=== PATIENT | female | born 1965 ===

== ENCOUNTER 2024-04-10 11:31 | Inpatient (IN) ==
[2024-04-10] MEDS ORDERED: IOPAMIDOL 100 ML BOTTLE IV ONE (11:32)
[2024-04-10] MEDS: 0.9 % SODIUM CHLORIDE 1,000 ML IV ONE (12:15)
[2024-04-10] MEDS: HYDROmorphone 0.5 MG/0.5 ML SYRINGE IV ONE ×3 (12:20→14:07)
[2024-04-10] MEDS: ONDANSETRON 4 MG/2 ML VIAL IV ONE ×2 (12:21→15:00)
[2024-04-10 12:43] LABS: Basophils # (Auto) 0.01 K/mcL (0.00-0.30); Basophils % (Auto) 0.1 % (0.0-2.0); Eosinophils # (Auto) 0.16 K/mcL (0.00-0.70); Eosinophils % (Auto) 1.2 % (0.0-7.0); Hematocrit 48.4 % (34.1-44.9); Lymphocytes # (Auto) 1.46 K/mcL (1.50-4.80); Lymphocytes % (Auto) 11.2 % (15.5-49.0); Mean Cell Volume 85.1 fL (80.0-100.0); Mean Corpuscular HGB Conc 33.1 g/dL (31.0-36.0); Mean Platelet Volume 10.1 fL (8.8-12.5); Monocytes % (Auto) 6.9 % (1.0-12.0); Neutrophils % (Auto) 80.4 % (38.0-78.0); Platelet Count 279 K/mcL (140-440); RBC 5.69 M/mcL (3.59-5.38); Red Cell Distribution Width 12.3 % (11.5-14.5)
[2024-04-10 13:05] LABS: ALT/SGPT 20 U/L (<40); AST/SGOT 32 U/L (<32); Albumin 4.5 gm/dL (3.2-5.2); Albumin/Globulin Ratio 1.7 (1.0-2.3); Alkaline Phosphatase 113 U/L (39-117); Bilirubin,Total 0.5 mg/dL (0.1-1.0); Blood Urea Nitrogen 14 mg/dL (6-20); Calcium 9.6 mg/dL (8.6-10.4); Carbon Dioxide 20 mmol/L (22-30); Chloride 104 mmol/L (96-108); Globulin 2.6 gm/dL (2.2-3.7); Glomerular Filtration Rate 100; Glucose 139 mg/dL (70-105); Potassium 3.9 mmol/L (3.3-5.1); Sodium 138 mmol/L (133-145)
[2024-04-10 13:19] LABS: Appearance,Urine Clear (Clear); Bacteria,Urine Few /hpf (0); Bilirubin,Urine Negative (Negative); Color,Urine Yellow; Culture Indicated,Urine No; Glucose,Urine (UA) Negative (Negative); Ketones,Urine Negative (Negative); Leukocyte Esterase,Urine Small /uL (Negative); Nitrate,Urine Negative (Negative); PH,Urine 5.5 (5.0-9.0); Protein,Urine 30 mg/dL (Negative); Urine Blood Trace-intact ery/mcL (Negative); Urine RBC 6 /hpf (0-3); Urine Squamous Epithelial Cell 5 /hpf (0-4); Urine WBC 5 /hpf (0-4); Urobilinogen,Urine 0.2 mg/dL
[2024-04-10] MEDS ORDERED: NALOXONE HCL 0.4 MG/ML VIAL IV PRN (15:30)
[2024-04-10] MEDS: LACTATED RINGERS 1,000 ML IV SCH (15:53)
[2024-04-10] MEDS: HYDROmorphone 1 MG/ML SYRINGE IV PRN ×2 (16:03→22:08)
[2024-04-10] MEDS ORDERED: IPRATROPIUM/ALBUTEROL 3 ML AMPUL.NEB NEB PRN (17:17)
[2024-04-10] MEDS: ACETAMINOPHEN 650 MG/65 ML BAG IV ONE (18:03)
[2024-04-10] MEDS: HYDROmorphone 1 MG/ML SYRINGE IV ONE (18:04)
[2024-04-10] MEDS: ONDANSETRON 4 MG/2 ML VIAL IV PRN (18:05)
[2024-04-10] MEDS: ACETAMINOPHEN 1,000 MG/100 ML BAG IV ONE (18:14)
[2024-04-10] MEDS: ONDANSETRON 4 MG/2 ML VIAL ONE (18:16)
[2024-04-10 18:34] LABS: HDL Cholesterol 51 mg/dL (>40); LDL Cholesterol,Calculated 143 mg/dL (<100); Non-HDL Cholesterol 168 mg/dL (<130); Triglycerides 127 mg/dL (<150)
[2024-04-10] MEDS: 0.9 % SODIUM CHLORIDE 10 ML SYRINGE IV SCH (23:20)
[2024-04-11] MEDS: ACETAMINOPHEN 650 MG/65 ML BAG IV PRN
[2024-04-11 05:50] LABS: ALT/SGPT 14 U/L (<40); AST/SGOT 27 U/L (<32); Albumin 4.1 gm/dL (3.2-5.2); Albumin/Globulin Ratio 1.6 (1.0-2.3); Alkaline Phosphatase 113 U/L (39-117); Bilirubin,Direct < 0.2 mg/dL (0-0.3); Bilirubin,Total 0.4 mg/dL (0.1-1.0); Blood Urea Nitrogen 16 mg/dL (6-20); Calcium 8.8 mg/dL (8.6-10.4); Carbon Dioxide 23 mmol/L (22-30); Chloride 103 mmol/L (96-108); Globulin 2.5 gm/dL (2.2-3.7); Glomerular Filtration Rate 81; Glucose 213 mg/dL (70-105); Lactate Dehydrogenase 197 U/L (135-225); Phosphorous 3.5 mg/dL (2.5-4.5); Potassium 4.3 mmol/L (3.3-5.1); Sodium 140 mmol/L (133-145); Triglycerides 83 mg/dL (<150); Uric Acid 3.9 mg/dL (2.5-8.0)
[2024-04-11 06:29] LABS: Basophils # (Auto) 0.01 K/mcL (0.00-0.30); Basophils % (Auto) 0.1 % (0.0-2.0); Eosinophils # (Auto) 0 K/mcL (0.00-0.70); Eosinophils % (Auto) 0 % (0.0-7.0); Hematocrit 52.2 % (34.1-44.9); Hemoglobin 17.1 g/dL (11.2-15.7); Lymphocytes # (Auto) 0.67 K/mcL (1.50-4.80); Lymphocytes % (Auto) 3.8 % (15.5-49.0); Mean Corpuscular HGB Conc 32.8 g/dL (31.0-36.0); Mean Platelet Volume 9.8 fL (8.8-12.5); Monocytes # (Auto) 0.93 K/mcL (0.10-0.90); Monocytes % (Auto) 5.2 % (1.0-12.0); Neutrophils % (Auto) 90.6 % (38.0-78.0); Platelet Count 297 K/mcL (140-440); Red Cell Distribution Width 12.3 % (11.5-14.5); WBC 17.8 K/mcL (4.5-11.0)
[2024-04-11 07:20] LABS: Appearance,Urine CLEAR (Clear); Bilirubin,Urine Negative (Negative); Color,Urine YELLOW; Culture Indicated,Urine No; Glucose,Urine (UA) 150 mg/dL (Negative); Ketones,Urine Negative (Negative); Leukocyte Esterase,Urine Negative /uL (Negative); Mucus,Urine MANY /hpf; Nitrate,Urine Negative (Negative); Protein,Urine 30 mg/dL (Negative); Specific Gravity,Urine 1.049 (1.000-1.035); Urine Blood 0.03 mg/dL (Negative); Urine Hyaline Cast 1 /lph (0-2); Urine RBC 1 /hpf (0-3); Urine Squamous Epithelial Cell 1 /hpf (0-4); Urine WBC 0 /hpf (0-4); Urobilinogen,Urine Negative
[2024-04-11] MEDS: LACTATED RINGERS 1,000 ML IV SCH (07:30)
[2024-04-11] MEDS: PIPERACILLIN SODIUM/TAZOBACTAM 4.5 GM in DEXTROSE 5% IN WATER 50 ML IV ONE (08:44)
[2024-04-11] MEDS: ENOXAPARIN 40 MG/0.4 ML SYRINGE SQ SCH (08:45)
[2024-04-11] MEDS: MONTELUKAST 10 MG TABLET PO SCH (08:46)
[2024-04-11] MEDS: PROCHLORPERAZINE 10 MG/2 ML VIAL IV ONE (08:59)
[2024-04-11] MEDS: PIPERACILLIN SODIUM/TAZOBACTAM 4.5 GM in DEXTROSE 5% IN WATER 100 ML IV SCH (11:18)
[2024-04-11] MEDS: Fluticasone-Umeclidin-Vilanter [Trelegy Ellipta] Inhaler INH SCH (13:00)
[2024-04-11] MEDS ORDERED: IOPAMIDOL 100 ML BOTTLE IV ONE (17:21)
[2024-04-11] MEDS: METOPROLOL TARTRATE 5 MG/5 ML VIAL IV ONE ×2 (18:04→18:19)
[2024-04-12] MEDS: METOPROLOL TARTRATE 5 MG/5 ML VIAL IV PRN (05:04)
[2024-04-12] MEDS: METOPROLOL TARTRATE 5 MG/5 ML VIAL IV ONE (05:42)
[2024-04-12 07:11] LABS: Basophils # (Auto) 0.01 K/mcL (0.00-0.30); Basophils % (Auto) 0.1 % (0.0-2.0); Eosinophils # (Auto) 0 K/mcL (0.00-0.70); Eosinophils % (Auto) 0 % (0.0-7.0); Hematocrit 45.2 % (34.1-44.9); Hemoglobin 14.8 g/dL (11.2-15.7); Lymphocytes % (Auto) 3.6 % (15.5-49.0); Mean Cell Volume 87.8 fL (80.0-100.0); Mean Corpuscular HGB Conc 32.7 g/dL (31.0-36.0); Mean Platelet Volume 10.1 fL (8.8-12.5); Monocytes # (Auto) 1.24 K/mcL (0.10-0.90); Monocytes % (Auto) 6.4 % (1.0-12.0); Neutrophils % (Auto) 89.6 % (38.0-78.0); Platelet Count 222 K/mcL (140-440); RBC 5.15 M/mcL (3.59-5.38); Red Cell Distribution Width 12.9 % (11.5-14.5); WBC 19.4 K/mcL (4.5-11.0)
[2024-04-12 07:44] LABS: ALT/SGPT 18 U/L (<40); AST/SGOT 44 U/L (<32); Albumin 3.3 gm/dL (3.2-5.2); Albumin/Globulin Ratio 1.6 (1.0-2.3); Alkaline Phosphatase 80 U/L (39-117); Bilirubin,Direct 0.4 mg/dL (<0.3); Bilirubin,Total 0.8 mg/dL (0.1-1.0); Blood Urea Nitrogen 15 mg/dL (6-20); Calcium 7.9 mg/dL (8.6-10.4); Carbon Dioxide 24 mmol/L (22-30); Chloride 103 mmol/L (96-108); Globulin 2.1 gm/dL (2.2-3.7); Glomerular Filtration Rate 100; Glucose 176 mg/dL (70-105); Lactate Dehydrogenase 373 U/L (135-225); Phosphorous 1.7 mg/dL (2.5-4.5); Potassium 4.2 mmol/L (3.3-5.1); Sodium 137 mmol/L (133-145); Triglycerides 56 mg/dL (<150); Uric Acid 2.1 mg/dL (2.5-8.0)
[2024-04-12] MEDS: LIDOCAINE 4% TOP PATCH TOPICAL SCH (08:30)
[2024-04-12] MEDS: LACTATED RINGERS 1,000 ML IV SCH (10:26)
[2024-04-12] MEDS ORDERED: IOPAMIDOL 100 ML BOTTLE IV ONE (11:44)
[2024-04-12] MEDS: MEROPENEM 1 GM in 0.9 % SODIUM CHLORIDE 50 ML IV SCH (15:14)
[2024-04-12] MEDS: METOPROLOL TARTRATE 50 MG TABLET PO SCH (18:10)
[2024-04-12] MEDS: METOPROLOL TARTRATE 25 MG TABLET ONE (18:34)
[2024-04-12] MEDS: CALCIUM CARBONATE 500 MG TAB.CHEW PO SCH (21:06)
[2024-04-13 06:40] LABS: Basophils # (Auto) 0 K/mcL (0.00-0.30); Basophils % (Auto) 0 % (0.0-2.0); Eosinophils # (Auto) 0 K/mcL (0.00-0.70); Eosinophils % (Auto) 0 % (0.0-7.0); Hematocrit 40.1 % (34.1-44.9); Lymphocytes % (Auto) 4.5 % (15.5-49.0); Mean Cell Volume 87.7 fL (80.0-100.0); Mean Corpuscular HGB Conc 32.4 g/dL (31.0-36.0); Mean Platelet Volume 9.7 fL (8.8-12.5); Monocytes # (Auto) 0.75 K/mcL (0.10-0.90); Monocytes % (Auto) 5.7 % (1.0-12.0); Neutrophils % (Auto) 88.7 % (38.0-78.0); Platelet Count 199 K/mcL (140-440); RBC 4.57 M/mcL (3.59-5.38); WBC 13.2 K/mcL (4.5-11.0)
[2024-04-13 07:16] LABS: ALT/SGPT 17 U/L (<40); AST/SGOT 46 U/L (<32); Albumin 2.8 gm/dL (3.2-5.2); Albumin/Globulin Ratio 1.1 (1.0-2.3); Alkaline Phosphatase 70 U/L (39-117); Bilirubin,Direct 0.4 mg/dL (<0.3); Bilirubin,Total 0.9 mg/dL (0.1-1.0); Blood Urea Nitrogen 12 mg/dL (6-20); Calcium 8.3 mg/dL (8.6-10.4); Carbon Dioxide 25 mmol/L (22-30); Chloride 102 mmol/L (96-108); Globulin 2.6 gm/dL (2.2-3.7); Glomerular Filtration Rate 106; Glucose 140 mg/dL (70-105); Lactate Dehydrogenase 540 U/L (135-225); Phosphorous 1.2 mg/dL (2.5-4.5); Sodium 136 mmol/L (133-145); Triglycerides 74 mg/dL (<150); Uric Acid 2.2 mg/dL (2.5-8.0)
[2024-04-13] MEDS: oxyCODONE IR 5 MG TABLET PO PRN (10:41)
[2024-04-13] MEDS: SODIUM PHOSPHATE 30 MMOL in DEXTROSE 5% IN WATER 500 ML IV ONE (12:11)
[2024-04-13] MEDS: ACETAMINOPHEN 325 MG TABLET PO PRN (20:56)
[2024-04-14 06:53] LABS: ALT/SGPT 15 U/L (<40); AST/SGOT 37 U/L (<32); Albumin 2.6 gm/dL (3.2-5.2); Albumin/Globulin Ratio 0.9 (1.0-2.3); Alkaline Phosphatase 68 U/L (39-117); Bilirubin,Direct 0.3 mg/dL (<0.3); Bilirubin,Total 0.7 mg/dL (0.1-1.0); Blood Urea Nitrogen 11 mg/dL (6-20); Calcium 8.6 mg/dL (8.6-10.4); Carbon Dioxide 27 mmol/L (22-30); Chloride 98 mmol/L (96-108); Globulin 2.9 gm/dL (2.2-3.7); Glomerular Filtration Rate 115; Glucose 120 mg/dL (70-105); Lactate Dehydrogenase 551 U/L (135-225); Phosphorous 1.2 mg/dL (2.5-4.5); Potassium 3.8 mmol/L (3.3-5.1); Sodium 134 mmol/L (133-145); Triglycerides 91 mg/dL (<150); Uric Acid 2.9 mg/dL (2.5-8.0)
[2024-04-14 06:54] LABS: Basophils # (Auto) 0 K/mcL (0.00-0.30); Basophils % (Auto) 0 % (0.0-2.0); Eosinophils # (Auto) 0.03 K/mcL (0.00-0.70); Eosinophils % (Auto) 0.3 % (0.0-7.0); Hematocrit 37.1 % (34.1-44.9); Lymphocytes # (Auto) 0.64 K/mcL (1.50-4.80); Lymphocytes % (Auto) 5.4 % (15.5-49.0); Mean Cell Volume 88.8 fL (80.0-100.0); Mean Corpuscular HGB Conc 32.3 g/dL (31.0-36.0); Mean Platelet Volume 9.7 fL (8.8-12.5); Monocytes % (Auto) 5.9 % (1.0-12.0); Neutrophils % (Auto) 87.4 % (38.0-78.0); Platelet Count 210 K/mcL (140-440); RBC 4.18 M/mcL (3.59-5.38); Red Cell Distribution Width 12.9 % (11.5-14.5); WBC 11.8 K/mcL (4.5-11.0)
[2024-04-14] MEDS: PANTOPRAZOLE 40 MG VIAL IV SCH (08:01)
[2024-04-14] MEDS: SODIUM PHOSPHATE 30 MMOL in DEXTROSE 5% IN WATER 500 ML IV ONE (13:27)
[2024-04-14] MEDS: SENNOSIDES 1 TABLET PO PRN (20:33)
[2024-04-15 05:52] LABS: Basophils # (Auto) 0.01 K/mcL (0.00-0.30); Basophils % (Auto) 0.1 % (0.0-2.0); Eosinophils # (Auto) 0.09 K/mcL (0.00-0.70); Eosinophils % (Auto) 0.8 % (0.0-7.0); Hematocrit 33.2 % (34.1-44.9); Hemoglobin 10.9 g/dL (11.2-15.7); Lymphocytes # (Auto) 0.74 K/mcL (1.50-4.80); Lymphocytes % (Auto) 6.2 % (15.5-49.0); Mean Cell Volume 87.1 fL (80.0-100.0); Mean Corpuscular HGB Conc 32.8 g/dL (31.0-36.0); Mean Platelet Volume 9.2 fL (8.8-12.5); Monocytes % (Auto) 7.5 % (1.0-12.0); Neutrophils % (Auto) 79.6 % (38.0-78.0); Platelet Count 209 K/mcL (140-440); RBC 3.81 M/mcL (3.59-5.38); Red Cell Distribution Width 12.9 % (11.5-14.5); WBC 11.9 K/mcL (4.5-11.0)
[2024-04-15 06:11] LABS: ALT/SGPT 12 U/L (<40); AST/SGOT 32 U/L (<32); Albumin 2.5 gm/dL (3.2-5.2); Albumin/Globulin Ratio 0.9 (1.0-2.3); Alkaline Phosphatase 73 U/L (39-117); Bilirubin,Direct 0.3 mg/dL (<0.3); Bilirubin,Total 0.5 mg/dL (0.1-1.0); Blood Urea Nitrogen 9 mg/dL (6-20); Calcium 8.3 mg/dL (8.6-10.4); Carbon Dioxide 28 mmol/L (22-30); Chloride 97 mmol/L (96-108); Globulin 2.9 gm/dL (2.2-3.7); Glomerular Filtration Rate 126; Glucose 124 mg/dL (70-105); Lactate Dehydrogenase 494 U/L (135-225); Phosphorous 1.3 mg/dL (2.5-4.5); Potassium 3.3 mmol/L (3.3-5.1); Sodium 133 mmol/L (133-145); Triglycerides 90 mg/dL (<150); Uric Acid 3.3 mg/dL (2.5-8.0)
[2024-04-15] MEDS: oxyCODONE IR 5 MG TABLET PO PRN (09:29)
[2024-04-15] MEDS: POTASSIUM PHOSPHATE 40 MEQ in DEXTROSE 5% IN WATER 500 ML IV ONE (09:30)
[2024-04-15] MEDS ORDERED: POTASSIUM CHLORIDE 20 MEQ TABLET PO SCH (17:30)
[2024-04-16 09:02] LABS: ALT/SGPT 18 U/L (<40); AST/SGOT 35 U/L (<32); Albumin 2.5 gm/dL (3.2-5.2); Albumin/Globulin Ratio 0.9 (1.0-2.3); Alkaline Phosphatase 106 U/L (39-117); Bilirubin,Total 0.6 mg/dL (0.1-1.0); Blood Urea Nitrogen 7 mg/dL (6-20); Calcium 8.3 mg/dL (8.6-10.4); Carbon Dioxide 26 mmol/L (22-30); Chloride 98 mmol/L (96-108); Globulin 2.8 gm/dL (2.2-3.7); Glomerular Filtration Rate 126; Glucose 106 mg/dL (70-105); Potassium 3.4 mmol/L (3.3-5.1); Sodium 138 mmol/L (133-145)
[2024-04-16] MEDS: POLYETHYLENE GLYCOL 3350 17 GM PACKET PO PRN (09:08)
[2024-04-16] MEDS ORDERED: IOPAMIDOL 100 ML BOTTLE IV ONE (09:13)
[2024-04-16 09:26] LABS: Basophils # (Auto) 0 K/mcL (0.00-0.30); Basophils % (Auto) 0 % (0.0-2.0); Eosinophils % (Auto) 0.7 % (0.0-7.0); Hemoglobin 10.8 g/dL (11.2-15.7); Lymphocytes # (Auto) 0.78 K/mcL (1.50-4.80); Lymphocytes % (Auto) 5.7 % (15.5-49.0); Mean Cell Volume 89.5 fL (80.0-100.0); Mean Corpuscular HGB Conc 31.8 g/dL (31.0-36.0); Mean Platelet Volume 9.6 fL (8.8-12.5); Monocytes # (Auto) 1.06 K/mcL (0.10-0.90); Monocytes % (Auto) 7.8 % (1.0-12.0); Neutrophils % (Auto) 81.1 % (38.0-78.0); Platelet Count 234 K/mcL (140-440); WBC 13.6 K/mcL (4.5-11.0)
[2024-04-16] MEDS: POTASSIUM CHLORIDE 40 MEQ in DEXTROSE 5% IN WATER 500 ML IV ONE (10:00)
[2024-04-17 06:52] LABS: Basophils # (Auto) 0.01 K/mcL (0.00-0.30); Basophils % (Auto) 0.1 % (0.0-2.0); Eosinophils # (Auto) 0.09 K/mcL (0.00-0.70); Eosinophils % (Auto) 0.7 % (0.0-7.0); Hematocrit 33.3 % (34.1-44.9); Hemoglobin 10.8 g/dL (11.2-15.7); Lymphocytes % (Auto) 4.7 % (15.5-49.0); Mean Cell Volume 88.3 fL (80.0-100.0); Mean Corpuscular HGB Conc 32.4 g/dL (31.0-36.0); Mean Platelet Volume 9.4 fL (8.8-12.5); Monocytes # (Auto) 0.41 K/mcL (0.10-0.90); Monocytes % (Auto) 3.2 % (1.0-12.0); Neutrophils % (Auto) 83.5 % (38.0-78.0); Platelet Count 235 K/mcL (140-440); RBC 3.77 M/mcL (3.59-5.38); WBC 12.8 K/mcL (4.5-11.0)
[2024-04-17 07:08] LABS: ALT/SGPT 19 U/L (<40); AST/SGOT 37 U/L (<32); Albumin 2.5 gm/dL (3.2-5.2); Albumin/Globulin Ratio 0.9 (1.0-2.3); Alkaline Phosphatase 113 U/L (39-117); Bilirubin,Total 0.7 mg/dL (0.1-1.0); Blood Urea Nitrogen 6 mg/dL (6-20); Calcium 8.2 mg/dL (8.6-10.4); Carbon Dioxide 29 mmol/L (22-30); Chloride 96 mmol/L (96-108); Globulin 2.7 gm/dL (2.2-3.7); Glomerular Filtration Rate 126; Glucose 116 mg/dL (70-105); Potassium 3.4 mmol/L (3.3-5.1); Sodium 135 mmol/L (133-145)
[2024-04-17 10:55] LABS: Thyroid Stimulating Hormone 3.31 uIU/mL (0.27-5.01)
[2024-04-17] MEDS: POTASSIUM CHLORIDE 20 MEQ TABLET PO SCH (16:58)
[2024-04-18 06:35] LABS: Basophils # (Auto) 0.01 K/mcL (0.00-0.30); Basophils % (Auto) 0.1 % (0.0-2.0); Eosinophils # (Auto) 0.05 K/mcL (0.00-0.70); Eosinophils % (Auto) 0.6 % (0.0-7.0); Hematocrit 32.7 % (34.1-44.9); Hemoglobin 10.7 g/dL (11.2-15.7); Lymphocytes # (Auto) 0.57 K/mcL (1.50-4.80); Lymphocytes % (Auto) 7.2 % (15.5-49.0); Mean Cell Volume 86.5 fL (80.0-100.0); Mean Corpuscular HGB Conc 32.7 g/dL (31.0-36.0); Monocytes # (Auto) 0.34 K/mcL (0.10-0.90); Monocytes % (Auto) 4.3 % (1.0-12.0); Neutrophils % (Auto) 77.9 % (38.0-78.0); Platelet Count 229 K/mcL (140-440); RBC 3.78 M/mcL (3.59-5.38); WBC 7.9 K/mcL (4.5-11.0)
[2024-04-18 06:48] LABS: ALT/SGPT 23 U/L (<40); AST/SGOT 39 U/L (<32); Albumin 2.6 gm/dL (3.2-5.2); Alkaline Phosphatase 110 U/L (39-117); Bilirubin,Total 0.6 mg/dL (0.1-1.0); Blood Urea Nitrogen 6 mg/dL (6-20); C-Reactive Protein 25.2 mg/dL (0.03-0.80); Carbon Dioxide 29 mmol/L (22-30); Chloride 96 mmol/L (96-108); Globulin 2.6 gm/dL (2.2-3.7); Glomerular Filtration Rate 126; Glucose 130 mg/dL (70-105); Potassium 3.5 mmol/L (3.3-5.1); Sodium 133 mmol/L (133-145)
[2024-04-18 06:49] LABS: Phosphorous 1.8 mg/dL (2.5-4.5)
[2024-04-18] MEDS: POTASSIUM PHOSPHATE 20 MEQ in DEXTROSE 5% IN WATER 250 ML IV SCH (13:33)
[2024-04-19 07:20] LABS: ALT/SGPT 27 U/L (<40); AST/SGOT 53 U/L (<32); Albumin 2.8 gm/dL (3.2-5.2); Alkaline Phosphatase 129 U/L (39-117); Bilirubin,Direct 0.2 mg/dL (<0.3); Bilirubin,Total 0.5 mg/dL (0.1-1.0); Blood Urea Nitrogen 6 mg/dL (6-20); Calcium 8.3 mg/dL (8.6-10.4); Carbon Dioxide 25 mmol/L (22-30); Chloride 100 mmol/L (96-108); Globulin 2.9 gm/dL (2.2-3.7); Glomerular Filtration Rate 126; Glucose 141 mg/dL (70-105); Lactate Dehydrogenase 420 U/L (135-225); Phosphorous 2.2 mg/dL (2.5-4.5); Potassium 3.8 mmol/L (3.3-5.1); Sodium 136 mmol/L (133-145); Triglycerides 113 mg/dL (<150); Uric Acid 2.1 mg/dL (2.5-8.0)
[2024-04-19] MEDS ORDERED: LACTULOSE 20 GM/30 ML ORAL.SOL PO PRN (10:53)
[2024-04-19] MEDS: ALBUMIN HUMAN 12.5 GM/50 ML VIAL IV SCH (12:27)
[2024-04-19] MEDS: POLYETHYLENE GLYCOL 3350 17 GM PACKET PO SCH (12:27)
[2024-04-19] MEDS: LACTULOSE 20 GM/30 ML ORAL.SOL PO SCH (12:27)
[2024-04-19] MEDS: DOCUSATE SODIUM 100 MG CAPSULE PO SCH (12:28)
[2024-04-19] MEDS: SENNOSIDES 1 TABLET PO SCH (12:28)
[2024-04-19] MEDS: FUROSEMIDE 40 MG/4 ML VIAL IV SCH (13:15)
[2024-04-19] MEDS: POLYETHYLENE GLYCOL 3350 17 GM PACKET PO PRN (16:16)
[2024-04-19] MEDS ORDERED: MAGNESIUM HYDROXIDE 30 ML ORAL.SUSP PO PRN (16:21)
[2024-04-19] MEDS: METHYLNALTREXONE BROMIDE 12 MG/0.6 ML SYRINGE SC SCH (20:03)
[2024-04-20 07:29] LABS: ALT/SGPT 31 U/L (<40); AST/SGOT 48 U/L (<32); Albumin/Globulin Ratio 1.1 (1.0-2.3); Alkaline Phosphatase 108 U/L (39-117); Bilirubin,Direct < 0.2 mg/dL (0-0.3); Bilirubin,Total 0.4 mg/dL (0.1-1.0); Blood Urea Nitrogen 9 mg/dL (6-20); Calcium 8.6 mg/dL (8.6-10.4); Carbon Dioxide 25 mmol/L (22-30); Chloride 99 mmol/L (96-108); Globulin 2.8 gm/dL (2.2-3.7); Glomerular Filtration Rate 115; Glucose 147 mg/dL (70-105); Lactate Dehydrogenase 361 U/L (135-225); Phosphorous 3.2 mg/dL (2.5-4.5); Potassium 3.6 mmol/L (3.3-5.1); Sodium 137 mmol/L (133-145); Triglycerides 128 mg/dL (<150)
[2024-04-20 11:53] VITALS: TEMP 97.3
[2024-04-20 12:43] VITALS: O2SAT 97
== END 2024-04-20 12:43 | disposition home or self-care (01) | DRG 438 ==
LOC: ED 11:31 → MEDSUR 17:07 → ICU 04-11 05:20 → MEDSUR 04-15 18:55
PROVIDERS: ADMIT Student in an Organized Health Care Education/Training Program; ATTEND Internal Medicine

== ENCOUNTER 2024-06-22 02:40 | Inpatient (IN) ==
[2024-06-22] MEDS ORDERED: IOPAMIDOL 100 ML BOTTLE IV ONE (02:41)
[2024-06-22] MEDS: fentaNYL 100 MCG/2 ML VIAL IV PRN ×2 (03:08→04:30)
[2024-06-22 03:11] LABS: Basophils # (Auto) 0 K/mcL (0.00-0.30); Basophils % (Auto) 0 % (0.0-2.0); Eosinophils # (Auto) 0.22 K/mcL (0.00-0.70); Eosinophils % (Auto) 3.8 % (0.0-7.0); Hematocrit 41.4 % (34.1-44.9); Hemoglobin 13.8 g/dL (11.2-15.7); Lymphocytes % (Auto) 27.9 % (15.5-49.0); Mean Cell Volume 82.8 fL (80.0-100.0); Mean Corpuscular HGB Conc 33.3 g/dL (31.0-36.0); Mean Platelet Volume 10.1 fL (8.8-12.5); Monocytes # (Auto) 0.45 K/mcL (0.10-0.90); Monocytes % (Auto) 7.8 % (1.0-12.0); Neutrophils % (Auto) 60.3 % (38.0-78.0); Platelet Count 255 K/mcL (140-440); Red Cell Distribution Width 12.9 % (11.5-14.5); WBC 5.7 K/mcL (4.5-11.0)
[2024-06-22 03:33] LABS: ALT/SGPT 31 U/L (<40); AST/SGOT 24 U/L (<32); Albumin 4.2 gm/dL (3.2-5.2); Albumin/Globulin Ratio 1.6 (1.0-2.3); Alkaline Phosphatase 141 U/L (39-117); Amylase 141 U/L (28-100); Bilirubin,Total 0.4 mg/dL (0.1-1.0); Blood Urea Nitrogen 8 mg/dL (6-20); Calcium 9.7 mg/dL (8.6-10.4); Carbon Dioxide 23 mmol/L (22-30); Chloride 104 mmol/L (96-108); Globulin 2.6 gm/dL (2.2-3.7); Glomerular Filtration Rate 106; Glucose 151 mg/dL (70-105); Potassium 3.8 mmol/L (3.3-5.1); Sodium 140 mmol/L (133-145)
[2024-06-22] MEDS: 0.9 % SODIUM CHLORIDE 1,000 ML IV SCH ×2 (04:31→15:14)
[2024-06-22] MEDS: HYDROmorphone 1 MG/ML SYRINGE IV PRN (05:20)
[2024-06-22] MEDS: ONDANSETRON 4 MG/2 ML VIAL IV ONE (05:21)
[2024-06-22 07:36] LABS: Appearance,Urine Clear (Clear); Bilirubin,Urine Negative (Negative); Color,Urine Yellow; Glucose,Urine (UA) Negative (Negative); Ketones,Urine Negative (Negative); Leukocyte Esterase,Urine Negative /uL (Negative); Nitrate,Urine Negative (Negative); Protein,Urine Negative (Negative); Urine Blood Trace-intact ery/mcL (Negative); Urine RBC 0 /hpf (0-3); Urine Squamous Epithelial Cell 0 /hpf (0-4); Urine WBC 0 /hpf (0-4); Urobilinogen,Urine Normal
[2024-06-22] MEDS ORDERED: POLYETHYLENE GLYCOL 3350 17 GM PACKET PO PRN (14:06)
[2024-06-22] MEDS ORDERED: MAGNESIUM SULFATE 2 GM/50 ML BAG IV PRN (14:06)
[2024-06-22] MEDS ORDERED: ACETAMINOPHEN 325 MG TABLET PO PRN (14:06)
[2024-06-22] MEDS ORDERED: POTASSIUM CHLORIDE 40 MEQ in DEXTROSE 5% IN WATER 500 ML IV PRN (14:06)
[2024-06-22] MEDS ORDERED: IPRATROPIUM/ALBUTEROL 3 ML AMPUL.NEB NEB PRN (14:06)
[2024-06-22] MEDS ORDERED: SENNOSIDES 1 TABLET PO PRN (14:06)
[2024-06-22] MEDS ORDERED: POTASSIUM CHLORIDE 20 MEQ TABLET PO PRN ×2 (14:06)
[2024-06-22] MEDS: 0.9 % SODIUM CHLORIDE 10 ML SYRINGE IV SCH (15:20)
[2024-06-22] MEDS: morphine 4 MG/ML VIAL IV PRN (16:36)
[2024-06-22] MEDS: ONDANSETRON 4 MG/2 ML VIAL IV PRN (19:33)
[2024-06-22] MEDS: oxyCODONE/APAP 5/325MG TABLET PO PRN (19:33)
[2024-06-22] MEDS: DOCUSATE SODIUM 100 MG CAPSULE PO SCH (19:33)
[2024-06-22] MEDS: METOPROLOL TARTRATE 50 MG TABLET PO SCH (21:38)
[2024-06-23] MEDS: METOPROLOL TARTRATE 25 MG TABLET PO ONE (12:18)
[2024-06-23] MEDS: Fluticasone-Umeclidin-Vilanter [Trelegy Ellipta] Inhaler INH SCH (12:18)
[2024-06-23] MEDS: METOPROLOL TARTRATE 25 MG TABLET PO SCH (21:13)
[2024-06-24 07:06] VITALS: TEMP 97.7
[2024-06-24 11:08] VITALS: O2SAT 96
== END 2024-06-24 11:20 | disposition home or self-care (01) | DRG 440 ==
LOC: ED 02:40 → MEDSUR 14:00
PROVIDERS: ADMIT Internal Medicine; ATTEND Internal Medicine